=== PATIENT | female | born 1970 | race Caucasian/White ===

== ENCOUNTER 2023-04-29 09:12 | Emergency (ER) | payer BC ==
[~2023-04-29] VITALS: Ht 157.5 cm; Wt 83.9 kg
[2023-04-29] MEDS ORDERED: AMLODIPINE-OLM1 EAC2 PO (09:26)
[2023-04-29] MEDS ORDERED: BUPROPION HCL100 MG PO (09:26)
[2023-04-29] MEDS ORDERED: LUNESTA1 MG PO (09:27)
[2023-04-29] MEDS ORDERED: LIALDA1.2 GM PO (09:27)
[2023-04-29] MEDS ORDERED: COZAAR25 MG PO (09:27)
[2023-04-29] MEDS ORDERED: OXYBUTYNIN CHLO15 MG PO (09:28)
[2023-04-29] MEDS ORDERED: OSPHENA60 MG PO (09:28)
[2023-04-29 11:13] LABS: HEMATOCRIT 39.9 % (36.0-45.00); HEMOGLOBIN 13.6 g/dL (12.0-15.00); MEAN CELL VOLUME 83.5 fL (80.00-100.00); MEAN CORPUSCULAR HEMOGLOBIN 28.4 pg (27.00-32.0); PLATELET COUNT 388 K/uL (150-450); RED BLOOD COUNT 4.79 M/uL (4.00-6.00)
== END 2023-04-29 12:12 | disposition home or self-care (01) ==
LOC: ER 09:14
PROVIDERS: General Practice
DX: J10.1 Influenza due to other identified influenza virus with other respiratory manifestations (principal); Z20.822 Contact with and (suspected) exposure to COVID-19; Z88.0 Allergy status to penicillin; Z88.2 Allergy status to sulfonamides; Z88.8 Allergy status to other drugs, medicaments and biological substances; Z87.09 Personal history of other diseases of the respiratory system